=== PATIENT | female | born 1995 | race Caucasian/White ===

== ENCOUNTER 2020-09-06 15:08 | Emergency (ER) | payer BC, MEDICAID ==
[~2020-09-06] VITALS: Ht 157.5 cm; Wt 93.4 kg
[2020-09-06 15:15] VITALS: BP 107/72
[2020-09-06 16:04] VITALS: BP 107/72
--- NOTE | 2020-09-06 16:04 | NUR ---
Patient discharged with v/s stable. Written and verbal after care instructions given and explained. Patient alert, oriented and verbalized understanding of instructions. Ambulatory with steady gait. All questions addressed prior to discharge. ID band removed. Patient advised to follow up with PMD. Rx of LORATIDINE given. Patient educated on indication of medication including possible reaction and side effects. Opportunity to ask questions provided and answered.
--- NOTE | 2020-09-06 16:04 | NUR ---
PT SEEN AND D/C BY CARYN ROLDAN, NO NURSING CARE GIVEN
== END 2020-09-06 16:04 | disposition home or self-care (01) ==
LOC: MED 15:08
DX: J30.2 Other seasonal allergic rhinitis (principal)
CPT/HCPCS: 99282